=== PATIENT | male | born 1945 | race Caucasian/White ===

== ENCOUNTER 2025-08-13 19:41 | Emergency (ER) | payer MEDICARE ==
[~2025-08-13] VITALS: Ht 188 cm; Wt 91.0 kg
[2025-08-13 19:46] VITALS: O2SAT 98
[2025-08-13] MEDS: TETANUS, DIPHTHERIA, PERTUSSIS VAC/PF 0.5ML (>10YR OLD) IM ONE (20:37)
[2025-08-13] MEDS: ACETAMINOPHEN 325MG TABLET PO ONE (20:37)
[2025-08-13 21:23] VITALS: BP 146/72; PULSE 60; RESP 20; TEMP 36.6; O2SAT 97
== END 2025-08-13 22:32 | disposition home or self-care (01) ==
LOC: ER 19:41
DX: S01.01XA Laceration without foreign body of scalp, initial encounter (principal); K50.90 Crohn's disease, unspecified, without complications; W01.0XXA Fall on same level from slipping, tripping and stumbling without subsequent striking against object, initial encounter; R51.9 Headache, unspecified; Y93.01 Activity, walking, marching and hiking; Y92.89 Other specified places as the place of occurrence of the external cause; Y99.8 Other external cause status
CPT/HCPCS: 12001; 90471; 90715; 99285